=== PATIENT | male | born 1980 | race Caucasian/White ===

== ENCOUNTER 2018-03-17 11:34 | Inpatient (IN) | payer SELFPAY ==
[~2018-03-17] VITALS: Ht 160 cm; Wt 59.0 kg
[2018-03-17] MEDS ORDERED: FOLIC ACID 1 MG, THIAMINE HCL 100 MG, MVI, ADULT NO.1 10 ML in DEXTROSE 5% WATER 1,000 ML IV ONE ×4 (12:45)
[2018-03-17 12:59] LABS: HEMATOCRIT. 37.6 % (42.0-52.0); HEMOGLOBIN. 13.2 g/dL (14.0-18.0); MEAN CORPUSCULAR VOLUME 87.9 fL (80.0-94.0); MEAN PLATELET VOLUME 7.9 fl (7.4-10.4); PLATELET 215 x1000/uL (130-400); RED BLOOD CELL COUNT 4.28 mill/uL (4.7-6.1); RED CELL DISTRIBUTION WIDTH 13.7 % (11.6-14.6)
[2018-03-17 13:05] LABS: CHLORIDE 83 mEq/L (98-107)
[2018-03-17 13:07] LABS: PARTIAL THROMBOPLASTIN TIME 23.4 sec (23.4-31.0); PROTHROMBIN TIME 10.5 sec (9.4-11.6)
[2018-03-17 13:11] LABS: ETHANOL BLOOD < 10 mg/dL
[2018-03-17 13:24] LABS: CARBAMAZEPINE < 0.5 ug/mL (4-12); PHENOBARBITAL < 2.1 ug/mL (15.0-40.0); VALPROIC ACID < 3.0 ug/mL (50-100)
[2018-03-17 13:29] LABS: PLATELET ESTIMATE NORMAL
[2018-03-17] MEDS ORDERED: LEVETIRACETAM 500MG PREMIX 100 ML IV ONE (14:00)
[2018-03-17] MEDS ORDERED: MAGNESIUM 1 G PREMIX 100 ML IV ONE (14:00)
[2018-03-17] MEDS ORDERED: MIDAZOLAM HCL 2 MG/2 ML VIAL IV ONE (15:45)
[2018-03-17] MEDS ORDERED: CHLORDIAZEPOXIDE 25MG CAPSULE PO ONE (15:45)
[2018-03-17] MEDS ORDERED: POTASSIUM CHLORIDE 20MEQ TABLET SR PO ONE (16:30)
[2018-03-17] MEDS ORDERED: LORAZEPAM 2MG/ML CPJ IV PRN (18:15)
[2018-03-17] MEDS ORDERED: ONDANSETRON HCL 4MG/2ML VIAL IV PRN (18:15)
[2018-03-17] MEDS ORDERED: DIPHENHYDRAMINE 50MG/ML VIAL IV PRN (18:15)
[2018-03-17] MEDS ORDERED: MAGNESIUM/ALUMINUM HYDROXIDE/SIMETHICONE 30ML UDC PO PRN (18:15)
[2018-03-17] MEDS ORDERED: CLONIDINE 0.1MG TABLET PO PRN (18:15)
[2018-03-17] MEDS ORDERED: ACETAMINOPHEN 325MG TABLET PO PRN (18:15)
[2018-03-17 20:00] VITALS: BP 126/80
[2018-03-17] MEDS ORDERED: LEVETIRACETAM 500 MG in SODIUM CHLORIDE 0.9% 100 ML IV SCH (21:00)
[2018-03-17] MEDS ORDERED: MVI, ADULT NO.1 10 ML, FOLIC ACID 1 MG, THIAMINE HCL 100 MG in SODIUM CHLORIDE 0.9% 1,0... IV NR ×4 (21:00)
[2018-03-17] MEDS ORDERED: SODIUM CHLORIDE 1000MG TABLET PO SCH (21:00)
[2018-03-17 22:00] VITALS: BP 108/83
[2018-03-18] VITALS: BP 99/57
[2018-03-18 02:00] VITALS: BP 85/50
[2018-03-18 04:00] VITALS: BP 103/67
[2018-03-18 06:00] VITALS: BP 89/47
[2018-03-18 06:59] LABS: CHLORIDE 96 mEq/L (98-107); HEMATOCRIT. 42.1 % (42.0-52.0); HEMOGLOBIN. 14.4 g/dL (14.0-18.0); MEAN CORPUSCULAR HEMOGLOBIN 30.9 pg (28.0-32.0); MEAN CORPUSCULAR VOLUME 90.4 fL (80.0-94.0); MEAN PLATELET VOLUME 8.5 fl (7.4-10.4); PLATELET 240 x1000/uL (130-400); RED BLOOD CELL COUNT 4.66 mill/uL (4.7-6.1); RED CELL DISTRIBUTION WIDTH 13.9 % (11.6-14.6)
[2018-03-18 07:11] LABS: PHOSPHORUS 3.5 mg/dL (2.5-4.9)
[2018-03-18 08:00] VITALS: BP 104/67
[2018-03-18] MEDS ORDERED: POTASSIUM CHLORIDE 20MEQ TABLET SR PO NR (09:15)
[2018-03-18 10:00] VITALS: BP 101/63
[2018-03-18] MEDS ORDERED: LEVETIRACETAM 500 MG in SODIUM CHLORIDE 0.9% 100 ML IV SCH ×2 (10:00→21:00)
[2018-03-18 16:24] LABS: PLATELET ESTIMATE NORMAL
== END 2018-03-18 11:55 | disposition left against medical advice (07) | DRG 48 ==
LOC: ER 12:35 → EDBEDREQ 15:49 → EDBEDREQTM 15:49 → 5EST 16:47 → ENRESERV 17:51
PROVIDERS: ADMIT Internal Medicine; ATTEND Internal Medicine
DX: G90.8 Other disorders of autonomic nervous system (principal); G92 Toxic encephalopathy; E87.1 Hypo-osmolality and hyponatremia; E83.42 Hypomagnesemia; G40.909 Epilepsy, unspecified, not intractable, without status epilepticus; F10.20 Alcohol dependence, uncomplicated; Z60.2 Problems related to living alone; E87.6 Hypokalemia; Y90.0 Blood alcohol level of less than 20 mg/100 ml; Z53.21 Procedure and treatment not carried out due to patient leaving prior to being seen by health care provider; R32 Unspecified urinary incontinence
CPT/HCPCS: 36415; 70450; 80048; 80053; 80156; 80165; 80184; 80185; 80307; 80329; 83735; 84100; 85025; 85610; 85730; 93005; 96365; 96367; 96375; 99291; G0482; J1953; J2250; J3411; J3475; J3490; J7030; J7050; J7070

== ENCOUNTER 2018-08-01 18:20 | Emergency (ER) | payer SELFPAY ==
[~2018-08-01] VITALS: Ht 170.2 cm; Wt 75.0 kg
[2018-08-02] MEDS ORDERED: ONDANSETRON HCL 4MG/2ML INJ IV STA (00:05)
[2018-08-02] MEDS ORDERED: SODIUM CHLORIDE 0.9% 1,000 ML IV ONE (00:05)
[2018-08-02 01:53] VITALS: BP 104/55
== END 2018-08-02 01:03 | disposition home or self-care (01) ==
LOC: ER 18:20
DX: F10.229 Alcohol dependence with intoxication, unspecified (principal); Y90.9 Presence of alcohol in blood, level not specified; Z98.890 Other specified postprocedural states
CPT/HCPCS: 96374; 99284; J2405; J7030